=== PATIENT | male | born 1990 | race African-American/Black ===

== ENCOUNTER 2017-01-13 22:45 | Emergency (ER) | payer MEDICAID ==
[~2017-01-13] VITALS: Ht 180.3 cm; Wt 136.0 kg
[~2017-01-13 22:45] MED LIST: CIPR500T4 PO; DIAZ5 PO; HYDR-3533 PO
[2017-01-13 22:47] VITALS: BP 161/84; PULSE 90; RESP 15; TEMP 99; O2SAT 100
--- NOTE | 2017-01-13 23:28 | RADRPT ---
EXAM DATE/TIME: 01/13/2017 23:12 [facility] COMPARISON: No previous studies available for comparison. INDICATIONS : Right hand pain after patient punched object today MEDICAL HISTORY : Prev. 5th metacarpal fracture SURGICAL HISTORY : None. ENCOUNTER: Initial ACUITY: 1 day PAIN SCORE: 7/10 LOCATION: Right medial hand FINDINGS: Three view examination of the right hand demonstrates no soft tissue swelling, dislocation, or fractu re. The carpal bones appear intact. The interphalangeal and metacarpophalangeal joints are intact. Bony mineralization is normal. CONCLUSION: No evidence of recent bony injury. Dannie Feldman MD on January 13, 2017 at 23:26 Board Certified Radiologist. This report was verified electronically.
--- NOTE | 2017-01-13 23:39 | PD ---
HPI Chief Complaint: Injury Time Seen by Provider: 11:28 Travel History International Travel<30 days: No Contact w/Intl Traveler<30days: No History of Present Illness HPI 26-year-old right-hand dominant male presents for evaluation of right hand pain. He reports that yesterday he punched a door. He has had pain in his right hand since then. The pain is an aching pain that is worse with movement. He denies any other injuries. No other complaints. PFSH Past Medical History ADHD: Yes Diminished Hearing: No Immunizations Current: Yes Social History Alcohol Use: Yes (most days I drink a pint of cher) Tobacco Use: No Substance Use: No Allergies-Medications (Allergen,Severity, Reaction): Coded Allergies: *MDRO Multi-Drug Resistant Organism (Verified Allergy, Unknown, 01/13/17) MRSA ibuprofen (Unverified Adverse Reaction, Unknown, 01/13/17) HIVES Reported Meds & Prescriptions Reported Meds & Active Scripts Active Valium (Diazepam) 5 Mg Tab 5 Mg PO BID PRN Z.0.lortab 5-325 Mg1 1 Tab 1 Tab PO Q6H PRN [id number] Mg 500 Mg Tab 500 Mg PO BID 7 Days Review of Systems Except as stated in HPI: all other systems reviewed are Neg Physical Exam Narrative GENERAL: Well-developed well-nourished male in no acute distress SKIN: Warm and dry. No bruising or soft tissue swelling, no abrasions. HEAD: Atraumatic. Normocephalic. EYES: Pupils equal and round. No scleral icterus. No injection or drainage. ENT: No nasal bleeding or discharge. Mucous membranes pink and moist. NECK: Trachea midline. No JVD. CARDIOVASCULAR: Regular rate and rhythm. No murmur appreciated. RESPIRATORY: No accessory muscle use. Clear to auscultation. Breath sounds equal bilaterally. GASTROINTESTINAL: Abdomen soft, non-tender, nondistended. Hepatic and splenic margins not palpable. MUSCULOSKELETAL: No obvious deformities. Slight tenderness to palpation to the mid right hand. No obvious bruising or soft tissue swelling or bony disturbance. Distal sensation is intact. Capillary refill less than 2 seconds all digits right hand. NEUROLOGICAL: Awake and alert. No obvious cranial nerve deficits. Motor grossly within normal limits. Normal speech. Data Data Last Documented VS Vital Signs Date Time Temp Pulse Resp B/P Pulse Ox O2 Delivery O2 Flow Rate FiO2 01/13/17 22:47 99.0 90 15 161/84 100 Room Air Orders Hand, Complete ([id number]) (01/13/17 22:58) [facility] Medical Decision Making Medical Screen Exam Complete: Yes Emergency Medical Condition: Yes Medical Record Reviewed: Yes Differential Diagnosis Hand contusion, strain, sprain, fracture Narrative Course X-ray imaging reveals no acute abnormalities. The patient appears to have a contusion to his hand. He is stable for discharge. Diagnosis Primary Impression: Contusion of right hand Qualified Code: S60.221A - Contusion of right hand, initial encounter Additional Instructions: Ice pack to the affected area a few times a day 10 minutes at a time. Tylenol for discomfort. Return for any emergent medical conditions. Med/Other Pt SpecificInfo: No Change to Meds Disposition: 01 DISCHARGE HOME Condition: Stable Henri Hu Jan 13, 2017 23:39
== END 2017-01-13 23:59 | disposition home or self-care (01) ==
LOC: NEPK 22:45
DX: S60.221A Contusion of right hand, initial encounter (principal); W22.8XXA Striking against or struck by other objects, initial encounter
CPT/HCPCS: 73130; 99283

== ENCOUNTER 2017-03-20 23:08 | Emergency (ER) | payer MEDICAID ==
[~2017-03-20] VITALS: Ht 182.9 cm; Wt 132.0 kg
[2017-03-20 23:11] VITALS: BP 152/83; PULSE 85; RESP 16; TEMP 99.1; O2SAT 98
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
[2017-03-20] MEDS ORDERED: TETANUS/DIPHTHERIA TOXOID ADULT 0.5 ML VIAL IM ONE (23:30)
[2017-03-20] MEDS ORDERED: ACETAMINOPHEN/CODEINE 300 MG/30 MG TAB PO ONE (23:30)
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
--- NOTE | 2017-03-20 23:58 | RADRPT ---
EXAM DATE/TIME: 03/20/2017 23:29 [facility] COMPARISON: HAND RIGHT COMPLETE ([id number]), January 13, 2017, 23:12. INDICATIONS : Pain in right hand after patient punched glass wall. MEDICAL HISTORY : None. SURGICAL HISTORY : None. ENCOUNTER: Initial ACUITY: 1 day PAIN SCORE: 7/10 LOCATION: Right Hand FINDINGS: Three view examination of the right hand demonstrates no soft tissue swelling, dislocation, or fractu re. The carpal bones appear intact. The interphalangeal and metacarpophalangeal joints are intact. Bony mineralization is normal. CONCLUSION: Negative trauma study with no evidence of fracture or radiopaque foreign body. Perry Banuelos MD on March 20, 2017 at 23:55 Board Certified Radiologist. This report was verified electronically.
[2017-03-21] MEDS ORDERED: TYLETAB34 PO (00:13)
[2017-03-21] MEDS ORDERED: traMADol HCL 50 MG TAB PO ONE (01:00)
== END 2017-03-21 01:04 | disposition home or self-care (01) ==
LOC: NEPD 23:08
DX: S61.411A Laceration without foreign body of right hand, initial encounter (principal); S63.92XA Sprain of unspecified part of left wrist and hand, initial encounter; W22.01XA Walked into wall, initial encounter; Z23 Encounter for immunization
CPT/HCPCS: 12001; 73130; 90471; 90714